=== PATIENT | male | born 1960 | race Caucasian/White ===

== ENCOUNTER 2016-10-24 15:40 | Day surgery (SDC) | payer OTHER ==
--- NOTE | 2016-10-24 15:50 | EDM.PDOC ---
ED HPI GI/ABDOMINAL - General Chief Complaint: Gastrointestinal Problem Stated Complaint: UNK Time Seen by Provider: 10/24/16 15:49 Source of Information: Reports: Patient History Limitations: Reports: No limitations - History of Present Illness INITIAL COMMENTS - FREE TEXT/NARRATIVE: HISTORY AND PHYSICAL: History of present illness: [Patient comes to the emergency room with a report of a foreign body in his rectum. Reports that a vibrator was placed in his rectum and he is not able to get it out. He reports that it is currently in the "on" position. He denies any pain and bleeding. Tried to douche to remove it. ] Review of systems: As per history of present illness and below otherwise all systems reviewed and negative. Past medical history: As per history of present illness and as reviewed below otherwise noncontributory. Surgical history: As per history of present illness and as reviewed below otherwise noncontributory. Social history: No reported history of drug or alcohol abuse. Family history: As per history of present illness and as reviewed below otherwise noncontributory. Physical exam: HEENT: Atraumatic, normocephalic. Lungs: Clear to auscultation, breath sounds equal bilaterally. Heart: S1S2, regular rate and rhythm. Abdomen: Soft, nondistended, nontender. Genitourinary: Deferred. Rectal: Normal sphincter tone. Rectal tissues are swollen. Foreign body is appreciated with only the tip of the examiner's finger. Extremities: Atraumatic, no cyanosis or edema appreciated. Neuro: Awake, alert, oriented. Motor and sensory unremarkable throughout. Exam nonfocal. Diagnostics: [KUB] Impression: [Retained foreign body in rectum] Plan: [Dr. Amber Nogueira is consulted, who will take patient to OR for foreign body removal. ] Definitive disposition and diagnosis as appropriate pending reevaluation and review of above. - Related Data Allergies/ADRs: Allergies Allergy/AdvReac Type Severity Reaction Status Date / Time Penicillins Allergy Swelling Verified 10/24/16 15:47 ragweed pollen Allergy Sneezing Verified 10/24/16 15:47 Home Meds: Home Meds Citalopram [Celexa] 1 tab PO ASDIRECTED PRN 08/19/16 [History] Lisinopril 1 tab PO DAILY 08/19/16 [History] Lisinopril/Hydrochlorothiazide [Lisinopril-Hctz 20-12.5 mg Tab] 1 tab PO DAILY 08/19/16 [History] Omeprazole 40 mg PO DAILY 08/19/16 [History] glyBURIDE [Glyburide] 10 mg PO BID 08/19/16 [History] metFORMIN HCl [Metformin HCl] 1 tab PO BID 08/19/16 [History] Past Medical History Other HEENT History: wears glasses Cardiovascular History: Reports: Hypertension Respiratory History: Reports: None Gastrointestinal History: Reports: Colon polyp, GERD Genitourinary History: Reports: None Musculoskeletal History: Reports: Fracture Other Musculoskeletal History: right tibia Neurological History: Reports: None Psychiatric History: Reports: PTSD Other Psychiatric History: denies need for pre-op sedation Endocrine/Metabolic History: Reports: Diabetes, type II, Obesity/BMI 30+ Hematologic History: Reports: None Immunologic History: Reports: None Oncologic (Cancer) History: Reports: None Dermatologic History: Reports: None - Past Surgical History Head Surgeries/Procedures: Reports: None HEENT Surgical History: Reports: None Cardiovascular Surgical History: Reports: None Respiratory Surgical History: Reports: None GI Surgical History: Reports: Colonoscopy, EGD Male Surgical History: Reports: None Endocrine Surgical History: Reports: None Neurological Surgical History: Reports: C-Spine, Laminectomy Musculoskeletal Surgical History: Reports: Other (see below) Other Musculoskeletal Surgeries/Procedures:: repair of partial amputation of finger, excision of left shoulder mass (lipoma) Oncologic Surgical History: Reports: None Dermatological Surgical History: Reports: None Social & Family History - Tobacco Use Smoking Status *Q: Former Smoker - Recreational Drug Use Recreational Drug Use: No Drug Use in Last 12 Months: No ED ROS GENERAL - Review of Systems Review Of Systems: ROS reveals no pertinent complaints other than HPI. ED EXAM, GI/ABD - Physical Exam Exam: See Below Course - Vital Signs Last Recorded V/S: Last Vital Signs Temp 99.0 F 10/24/16 15:47 Pulse 120 H 10/24/16 15:47 Resp 18 10/24/16 15:47 BP 141/86 H 10/24/16 15:47 Pulse Ox 95 10/24/16 15:47 Departure - Departure Time of Disposition: 16:30 Disposition: Home, Self-Care 01 Condition: good Clinical Impression: Rectal foreign body Qualifiers: Encounter type: initial encounter Qualified Code(s): T18.5XXA - Foreign body in anus and rectum, initial encounter
--- NOTE | 2016-10-24 16:22 | CR ---
EXAMINATION: Abdomen HISTORY: foreign body COMPARISON: None TECHNIQUE: Single view FINDINGS: There is a 14 cm mechanical device projecting over the rectum. Bilateral posterior fusion hardware noted within the lumbar spine. Visualized osseous structures appear normal. No abnormal ishmael cifications. IMPRESSION: There is a 14 cm mechanical device projecting over the rectosigmoid region.
[2016-10-24] MEDS ORDERED: Propofol 200 MG/20 ML SDV ONE (16:48)
[2016-10-24] MEDS ORDERED: Rocuronium 10 MG/ML 10 ML Syringe ONE (16:48)
[2016-10-24] MEDS ORDERED: Ondansetron 4 MG/2 ML SDV ONE (16:48)
[2016-10-24] MEDS ORDERED: Lidocaine 2% 5 ML SDV ONE (16:48)
[2016-10-24] MEDS ORDERED: Midazolam 1 MG/ML 2 ML SDV ONE (16:49)
[2016-10-24] MEDS ORDERED: fentaNYL 250 MCG/5 ML SDV ONE (16:49)
[2016-10-24] MEDS ORDERED: Succinylcholine/Normal Saline 200 MG/10 ML Syringe IV ONE (16:52)
[2016-10-24] MEDS ORDERED: Vasopressin 20 Units/1 ML MDV ONE (17:28)
--- NOTE | 2016-10-24 17:43 | PCM.OPNOTE ---
- General Post-Op/Procedure Note Date of Surgery/Procedure: 10/24/16 Operative Procedure(s): Removal of rectal foregin body Findings: Large pink dildo in rectum. First valve of espinoza in rectum bruised with small (1-2 mm) mucosal/NOT full thickness tear. Remainder of rectum and sigmoid appeared normal on sigmoidoscopy. Pre Op Diagnosis: rectal foreign body Post-Op Diagnosis: same Anesthesia Technique: General ET tube Primary Surgeon: Amber Nogueira Condition: Fair
[2016-10-24] MEDS ORDERED: fentaNYL 100 MCG/2 ML SDV IVPUSH PRN (17:51)
[2016-10-24 19:04] VITALS: BP 159/86
--- NOTE | 2016-10-24 20:37 | PCM48HPAN ---
Post Anesthesia Note - EVALUATION WITHIN 48HRS OF ANESTHETIC Vital Signs in Normal Range: Yes Patient Participated in Evaluation: Yes Respiratory Function Stable: Yes Airway Patent: Yes Cardiovascular Function Stable: Yes Hydration Status Stable: Yes Pain Control Satisfactory: Yes Nausea and Vomiting Control Satisfactory: Yes Mental Status Recovered: Yes
--- NOTE | 2016-10-24 20:37 | PCM.POSTAN ---
POST ANESTHESIA ASSESSMENT - MENTAL STATUS Mental Status: alert, oriented - RESPIRATORY Respiratory Status: respiratory rate WNL, airway patent, O2 saturation stable - CARDIOVASCULAR CV Status: pulse rate WNL, blood pressure stable - GASTROINTESTINAL GI Status: no symptoms - POST OP HYDRATION Hydration Status: adequate & stable
--- NOTE | 2016-10-25 00:06 | HP ---
DATE OF : 1960 PRIMARY CARE PHYSICIAN: None PCP CHIEF COMPLAINT: Foreign object in rectum. HISTORY OF PRESENT ILLNESS: The patient is a 55-year-old male, who presents to the emergency room with a foreign object in his rectum. The patient and his significant other were having sex this evening when she suggested placing a dildo up the patient's anus. The object was placed in the anus and it immediately went up into the patient's rectum. He attempted to remove it at home; however, it was too deep for him to remove it. The patient presented to the emergency room tonight right after the incident occurred. He denies any abdominal pain, fevers, chills or systemic signs of illness. His vital signs are stable. The patient tried douche at home in order to facilitate removal of the object with no relief. PAST MEDICAL HISTORY: Patient has a history of hypertension, hyperlipidemia, type 2 diabetes, and depression. PAST SURGICAL HISTORY: Anterior cervical neck fusion, lower lumbar fusion and lipoma removal on upper back. ALLERGIES: Penicillin and ragweed. SOCIAL HISTORY: Denies smoking, drinking, or any drug use. FAMILY HISTORY: Noncontributory. The patient states that there is no history of bleeding or clotting disorders. REVIEW OF SYSTEMS: A 10-point review of systems was negative other than stated above in the HPI. PHYSICAL EXAMINATION: VITAL SIGNS: Blood pressure 141/86, temp 99, pulse 120, respirations 18, SpO2 95% on room air. GENERAL: Well-nourished male, in no acute distress. HEENT: Head normocephalic and atraumatic. Pupils equal, round, reactive to light and accommodation. Ears and nose are normal externally. Mouth, mucous membranes moist. HEART: Regular rate and rhythm. LUNGS: Clear to auscultation bilaterally. ABDOMEN: Flat, soft, nontender. No evidence of guarding or rebound. RECTAL EXAM: Anoderm appears normal. No fissures. Digital rectal exam reveals a foreign object high up within the rectum, unable to be removed with my examination here in the emergency room. EXTREMITIES: Warm, well perfused. ASSESSMENT: Retained foreign object. PLAN: A KUB was performed in the emergency room which shows a low-lying rectal object consistent with a dildo. The patient is stable, in no acute pain. I explained to him that the quickest way to remove this would be by going to the operating room and performing an exam under anesthesia. If the object is unable to be removed with simple anesthesia, I would be performing a sigmoidoscopy and try performing the maneuvers with the scope to remove the object. Should the object unable to be removed or the object be found to perforate through the colon itself, the patient will need an exploratory laboratory laparotomy. We have gone over the risks of the procedure including bleeding, infection, or damage to surrounding structures. The patient verbalized understanding and wishes to proceed. The patient has not had anything to eat or drink since this morning and will be taken to the OR shortly. NELSON / SHILPI /[id number]
--- NOTE | 2016-10-25 01:03 | OR ---
SURGEON: STACY ORTIZ MD DATE OF PROCEDURE: 10/24/2016 PREOPERATIVE DIAGNOSIS: Rectal foreign body. POSTOPERATIVE DIAGNOSIS: Rectal foreign body. PROCEDURE PERFORMED: Exam under anesthesia and removal of rectal foreign body. ANESTHESIA: General endotracheal anesthesia. FINDINGS: Large pink dildo in rectum, removed intact. First valve of Bowles in the rectum, ecchymotic, with a small mucosal tear that was not full thickness. COMPLICATIONS: None. INDICATIONS: The patient is a 55-year-old male who this evening had a foreign body placed up his rectum. It was then removed with nonsurgical approach. I explained to the patient that we would take him to the operating room, put him under general anesthesia and perform an exam under anesthesia. If I was unable to remove it, I explained to the patient I may have to perform an exploratory laparotomy. We discussed the risks, including bleeding, infection, or damage to surrounding structures. The patient verbalized understanding and wished to proceed. PROCEDURE IN DETAIL: The patient was brought to the operating room and placed on the operating room table in lithotomy position. A time-out was completed verifying the patient's name, age, date of , allergies, and procedure to be performed. General endotracheal anesthesia was then induced. A digital rectal exam was performed which revealed that the foreign object was still too deep within the rectum in order to grasp the primarily. I attempted to place a bivalve in the patient's rectum, however, even with this in place, I was unable to see the end of the object. A colonoscope was then inserted in the rectum and the rectum insufflated with air. Using this, I was able to readily see the end of a silicone appearing dildo. I first attempted a loop snare to try and loop the object and pulled up primarily given the smooth texture of the object, however, I was unable to complete this. I tried guiding ring forceps along the colonoscope to grab the object, however, the object was to smooth in order to graft the object to the ring forceps. A single toothed tenotomy was then brought in and gently and carefully advanced over the top of the scope. It was then used to sharply grasp the end of the plastic device which gave me enough purchase to slowly and very deliberately remove the object in the same direction in which it was inserted. The object was then sent to pathology labeled as rectal foreign body. The colonoscope was then advanced into the rectum and advanced under direct visualization up along the sigmoid. The sigmoid colon itself appeared normal. The first valve of Bowles, however, in the rectum did appear ecchymotic and there was a very tiny 1-2 mm mucosal tear that did not appear full thickness. The rectum was desufflated and the procedure terminated. The patient was awoken and taken to the postoperative care unit in stable condition. All counts were complete and correct at the end of the case. NELSON / SHILPI /[id number]
--- NOTE | 2016-10-25 14:17 | CR ---
EXAM DATE: 10/24/16 PATIENT'S AGE: 55 Patient: NANCY EASTON Facility: [place], [place] Site . Site : 1960 Study: XRay Abdomen [id number]/[id number] 6:09:21 PM Ordering Physician: Mirlande Clark Final Report: HISTORY: Post removal rectal foreign object. Technique: Portable upright view of the abdomen, 2 images. Comparison: None. Findings: No free intraperitoneal gas. There is gas in nondilated colon. Degenerative changes in the spine. Fusion hardware in the lower lumbar spine. Impression: No free intraperitoneal gas. Dictated by Miki Lawrence MD @ Oct 24 2016 6:41PM (Electronic Signature) Report Signed by Proxy and Original Signed Document filed in the Medical Record. MTDMery
== END 2016-10-24 19:15 | disposition home or self-care (01) ==
LOC: MW.ED 15:40 → MW.SDS 16:16 → MW.MS 18:46 → MW.SDS 19:15
PROVIDERS: ATTEND Surgery
PROC: 0DCP8ZZ Extirpation of Matter from Rectum, Via Natural or Artificial Opening Endoscopic (ICD-10-PCS; principal; 2016-10-24)
DX: T18.5XXA Foreign body in anus and rectum, initial encounter (principal); I10 Essential (primary) hypertension; E78.5 Hyperlipidemia, unspecified; E11.9 Type 2 diabetes mellitus without complications; F32.9 Major depressive disorder, single episode, unspecified; Z98.1 Arthrodesis status; Z98.890 Other specified postprocedural states; Z88.0 Allergy status to penicillin; Z91.048 Other nonmedicinal substance allergy status
CPT/HCPCS: 45332; 74000; 99285; J2250; J2405; J3010; 00902; 88300; 99282; J2704

== ENCOUNTER 2018-12-01 03:26 | Emergency (ER) | payer OTHER ==
[2018-12-01] MEDS ORDERED: methylPREDNISolone Sodium Succinate 125 MG/2 ML SDV IVPUSH ONE (03:40)
[2018-12-01] MEDS ORDERED: Famotidine 20 MG/2 ML SDV IVPUSH ONE (03:40)
[2018-12-01] MEDS ORDERED: diphenhydrAMINE 50 MG/ML SDV IVPUSH ONE (03:40)
[2018-12-01] MEDS ORDERED: Sodium Chloride 0.9% 1,000 ML IV ONE (03:44)
[2018-12-01] MEDS ORDERED: EPINEPHrine 1 MG/ML SDV IM ONE (03:44)
[2018-12-01] MEDS ORDERED: Sodium Chloride 0.9% 10 ML Syringe FLUSH PRN (03:44)
[2018-12-01] MEDS ORDERED: Sodium Chloride 0.9% 2.5 ML Syringe FLUSH PRN (03:44)
--- NOTE | 2018-12-01 03:48 | EDM.PDOC ---
ED HPI GENERAL MEDICAL PROBLEM - General Chief Complaint: ENT Problem Stated Complaint: PT IS POSSIBLY HAVING AN ALLERGIC REACTION Time Seen by Provider: 12/01/18 03:38 - History of Present Illness INITIAL COMMENTS - FREE TEXT/NARRATIVE: HISTORY AND PHYSICAL: History of present illness: The patient is a 57-year-old male who comes in with sudden onset of lip and tongue swelling itchiness to his hands and itchy rash in his groin area that started approximately 30 minutes ago. The patient says that he did not eat any new foods our have any allergies to foods or products but he has been on lisinopril for the last 10 years and about 30 minutes ago he noticed that half of his lip was starting to swell in his entire lip swelled and his tongue and he became itchy in his hands and his groin area. He has no shortness of breath concerned about the swelling so came right here. He's never had a reaction to his medications in the past nor has he ever had an allergic reaction like this in the past. Review of systems: As per history of present illness and below otherwise all systems reviewed and negative. Past medical history: As per history of present illness and as reviewed below otherwise noncontributory. Surgical history: As per history of present illness and as reviewed below otherwise noncontributory. Social history: No reported history of drug or alcohol abuse. Family history: As per history of present illness and as reviewed below otherwise noncontributory. Physical exam: General: Well-developed well-nourished overweight man who is nontoxic and vital signs are noted by me. He is not breathless with my conversation but he does speak with a thickened tongue. Skin: There is an urticarial rash seen in his lower pelvis/groin area but the remainder of his body is without any rashes or erythema. HEENT: Atraumatic, normocephalic, pupils reactive, negative for conjunctival pallor or scleral icterus, mucous membranes moist, throat clear, neck supple, nontender, trachea midline. There is diffuse swelling of his lips lower greater than upper as well as his tongue but I am able to see his posterior oropharynx and uvula. There is no cervical adenopathy or nuchal rigidity and his entire face is not grossly swollen. Lungs: Clear to auscultation, breath sounds equal bilaterally, chest nontender. There is no wheezing or stridor Heart: S1S2, regular rate and rhythm no overt murmurs Abdomen: Soft, nondistended, nontender. Negative for masses or hepatosplenomegaly. Negative for costovertebral tenderness. Pelvis: Stable nontender. Genitourinary: Deferred. Rectal: Deferred. Extremities: Atraumatic, negative for cords or calf pain. Neurovascular unremarkable. No pedal edema or leg asymmetry and no hand or leg swelling is appreciated Neuro: Awake, alert, oriented. Cranial nerves II through XII unremarkable. Cerebellum unremarkable. Motor and sensory unremarkable throughout. Exam nonfocal. Diagnostics: none Therapeutics: IV O2 monitor IV fluids Benadryl pepcid Solu-Medrol Epi IM 0420: The patient's swelling of his lips and tongue have not progressed. He still says he is feeling itchy but we are continuing to monitor. 0446: Patient is now sleeping comfortably without any respiratory distress. Again there has been no significant worsening of the swelling of the lips and in fact they look slightly better. He is no longer itchy and the medications have kicked in. is aware that we will continue to monitor him 0545: Patient lips continue to improve as does his tongue and his speech is much improved. He would like to try to go home at this point and I will place him on steroids as well as Benadryl [id number]. He is aware that I would like to continue to observe him just to be safe but he says he would prefer to go home. He is aware of reasons to return and to stop taking the lisinopril is not having any respiratory compromise Impression: Angioedema, history of lisinopril use, improving Definitive disposition and diagnosis as appropriate pending reevaluation and review of above. - Related Data Allergies Allergy/AdvReac Type Severity Reaction Status Date / Time Penicillins Allergy Swelling Verified 12/01/18 03:42 ragweed pollen Allergy Sneezing Verified 12/01/18 03:42 Home Meds: Home Meds Citalopram [Celexa] 1 tab PO ASDIRECTED PRN 08/19/16 [History] Lisinopril 1 tab PO DAILY 08/19/16 [History] Lisinopril/Hydrochlorothiazide [Lisinopril-Hctz 20-12.5 mg Tab] 1 tab PO DAILY 08/19/16 [History] Omeprazole 40 mg PO DAILY 08/19/16 [History] glyBURIDE [Glyburide] 10 mg PO BID 08/19/16 [History] metFORMIN HCl [Metformin HCl] 1 tab PO BID 08/19/16 [History] Calcium Polycarbophil [Fiber Tabs] 625 mg PO BID #30 tablet 10/24/16 [Rx] Polyethylene Glycol 3350 [MiraLAX] 17 gm PO BEDTIME #30 packet 10/24/16 [Rx] Past Medical History Other HEENT History: wears glasses Cardiovascular History: Reports: Hypertension Respiratory History: Reports: None Gastrointestinal History: Reports: Colon Polyp, GERD Genitourinary History: Reports: None Musculoskeletal History: Reports: Fracture Other Musculoskeletal History: right tibia Neurological History: Reports: None Psychiatric History: Reports: PTSD Other Psychiatric History: denies need for pre-op sedation Endocrine/Metabolic History: Reports: Diabetes, Type II, Obesity/BMI 30+ Hematologic History: Reports: None Immunologic History: Reports: None Oncologic (Cancer) History: Reports: None Dermatologic History: Reports: None - Past Surgical History Musculoskeletal Surgical History: Reports: Other (See Below) Social & Family History - Family History Family Medical History: Noncontributory - Caffeine Use Caffeine Use: Reports: Coffee ED ROS GENERAL - Review of Systems Review Of Systems: ROS reveals no pertinent complaints other than HPI. ED EXAM, GENERAL - Physical Exam Exam: See Below (See dictation) Course - Vital Signs Last Recorded V/S: Last Vital Signs Temp 35.8 C 12/01/18 03:28 Pulse 93 12/01/18 03:28 Resp 20 12/01/18 03:28 BP 147/83 H 12/01/18 03:28 Pulse Ox 96 12/01/18 03:28 - Orders/Labs/Meds Orders: Active Orders 24 hr Category Date Time Status Sodium Chloride 0.9% [Saline Flush] Med 12/01/18 03:44 Active 10 ml FLUSH ASDIRECTED PRN Sodium Chloride 0.9% [Saline Flush] Med 12/01/18 03:44 Active 2.5 ml FLUSH ASDIRECTED PRN Saline Lock Insert [OM.PC] Stat Oth 12/01/18 03:44 Ordered Medication Orders Sodium Chloride (Saline Flush) 10 ml FLUSH ASDIRECTED PRN PRN Reason: Keep Vein Open Sodium Chloride (Saline Flush) 2.5 ml FLUSH ASDIRECTED PRN PRN Reason: Keep Vein Open Meds: Medications Generic Name Dose Route Start Last Admin Trade Name Freq PRN Reason Stop Dose Admin Sodium Chloride 10 ml 12/01/18 03:44 Saline Flush FLUSH ASDIRECTED PRN Keep Vein Open Sodium Chloride 2.5 ml 12/01/18 03:44 Saline Flush FLUSH ASDIRECTED PRN Keep Vein Open Discontinued Medications Generic Name Dose Route Start Last Admin Trade Name Freq PRN Reason Stop Dose Admin Diphenhydramine HCl 50 mg 12/01/18 03:40 12/01/18 03:45 Benadryl IVPUSH 12/01/18 03:41 50 mg ONETIME ONE Administration Epinephrine HCl 0.3 mg 12/01/18 03:44 12/01/18 03:55 Adrenalin IM 12/01/18 03:45 0.3 mg ONETIME ONE Administration Famotidine 20 mg 12/01/18 03:40 12/01/18 03:47 Pepcid IVPUSH 12/01/18 03:41 20 mg ONETIME ONE Administration Sodium Chloride 1,000 mls @ 999 mls/hr 12/01/18 03:44 12/01/18 03:50 Normal Saline IV 12/01/18 04:44 999 mls/hr STAT ONE Administration Methylprednisolone Sodium Succinate 125 mg 12/01/18 03:40 12/01/18 03:46 Solu-Medrol IVPUSH 12/01/18 03:41 125 mg ONETIME ONE Administration Departure - Departure Time of Disposition: 05:50 Disposition: Home, Self-Care 01 Condition: Good Clinical Impression: Angioedema due to angiotensin converting enzyme inhibitor (REAGAN-I) - Discharge Information Referrals: PCP,None [Primary Care Provider] - Forms: ED Department Discharge Additional Instructions: The following information is given to patients seen in the emergency department who are being discharged to home. This information is to outline your options for follow-up care. We provide all patients seen in our emergency department with a follow-up referral. The need for follow-up, as well as the timing and circumstances, are variable depending upon the specifics of your emergency department visit. If you don't have a primary care physician on staff, we will provide you with a referral. We always advise you to contact your personal physician following an emergency department visit to inform them of the circumstance of the visit and for follow-up with them and/or the need for any referrals to a consulting specialist. The emergency department will also refer you to a specialist when appropriate. This referral assures that you have the opportunity for followup care with a specialist. All of these measure are taken in an effort to provide you with optimal care, which includes your followup. Under all circumstances we always encourage you to contact your private physician who remains a resource for coordinating your care. When calling for followup care, please make the office aware that this follow-up is from your recent emergency room visit. If for any reason you are refused follow-up, please contact the [facility] emergency department at and ask to speak to the emergency department charge nurse. [facility] Primary care- Internal Medicine and Family [address] [address] Please do not take the lisinopril anymore and please contact her provider on Monday to discuss a change in her medications for your blood pressure. Please take Benadryl 50 mg [id number] every 6 hours for the next 2 days and then every 6 hours as needed. Please start the prednisone you have been given by prescription this evening. Eat only a soft diet and sleep on at least 3 -4 pillows or in a recliner for the next 24 hours. Return to ER as needed and as we discussed - My Orders Last 24 Hours: My Active Orders 12/01/18 03:44 Sodium Chloride 0.9% [Saline Flush] 10 ml FLUSH ASDIRECTED PRN Sodium Chloride 0.9% [Saline Flush] 2.5 ml FLUSH ASDIRECTED PRN Saline Lock Insert [OM.PC] Stat - Assessment/Plan Last 24 Hours: My Active Orders 12/01/18 03:44 Sodium Chloride 0.9% [Saline Flush] 10 ml FLUSH ASDIRECTED PRN Sodium Chloride 0.9% [Saline Flush] 2.5 ml FLUSH ASDIRECTED PRN Saline Lock Insert [OM.PC] Stat
[2018-12-01 06:00] VITALS: BP 127/74
== END 2018-12-01 06:25 | disposition home or self-care (01) ==
LOC: MW.ED 03:26
DX: T78.3XXA Angioneurotic edema, initial encounter (principal); I10 Essential (primary) hypertension; E11.9 Type 2 diabetes mellitus without complications; Z88.0 Allergy status to penicillin; Z79.899 Other long term (current) drug therapy
CPT/HCPCS: 96361; 96372; 96374; 96375; 99283; J0171; J1200; J2930; J3490; J7040; 99284

== ENCOUNTER 2020-01-11 15:48 | Emergency (ER) | payer OTHER ==
[2020-01-11] MEDS ORDERED: Sodium Chloride 0.9% 10 ML Syringe FLUSH PRN (15:58)
[2020-01-11] MEDS ORDERED: Sodium Chloride 0.9% 2.5 ML Syringe FLUSH PRN (15:58)
--- NOTE | 2020-01-11 16:12 | EDM.PDOC ---
ED HPI GENERAL MEDICAL PROBLEM - General Chief Complaint: Respiratory Problem Stated Complaint: SOB Time Seen by Provider: 01/11/20 16:08 Source of Information: Reports: Patient History Limitations: Reports: No Limitations - History of Present Illness INITIAL COMMENTS - FREE TEXT/NARRATIVE: HISTORY AND PHYSICAL: History of present illness: Patient is a 59-year-old male presents to the ED with complaint of shortness of breath. Patient states that when he is doing yard work and bending over he feels like he has to stop to catch his breath over the past 3-4 days. He denies any chest pain, cough, fevers, chills, nausea, vomiting, diarrhea. He states he has had some swelling in his legs for the past 1 week. Past medical history significant for hypertension and diabetes. Reports occasional alcohol use and history of smoking. Review of systems: As per history of present illness and below otherwise all systems reviewed and negative. Past medical history: As per history of present illness and as reviewed below otherwise noncontributory. Surgical history: As per history of present illness and as reviewed below otherwise noncontributory. Social history: No reported history of drug or alcohol abuse. Family history: As per history of present illness and as reviewed below otherwise noncontributory. Physical exam: General: Patient sitting comfortably in no acute distress and nontoxic appearing HEENT: Atraumatic, normocephalic, pupils reactive, negative for conjunctival pallor or scleral icterus, mucous membranes moist, throat clear, neck supple, nontender, trachea midline. No meningeal signs. Lungs: Clear to auscultation, breath sounds equal bilaterally, chest nontender. Heart: S1S2, regular, negative for clicks, rubs, or overt murmur. Abdomen: Soft, distended abdomen. Negative for masses or hepatosplenomegaly. Negative for costovertebral tenderness. No rigidity, rebound, guarding. Pelvis: Stable nontender. Genitourinary: Deferred. Rectal: Deferred. Extremities: 1+ pitting edema to the mid shins. Atraumatic, negative for cords or calf pain. Neurovascular unremarkable. Neuro: Awake, alert, oriented. Cranial nerves II through XII unremarkable. Cerebellum unremarkable. Motor and sensory unremarkable throughout. Exam nonfocal. Notes: Patient had a tick crawling on his that was not attached and there was no engorgement of the tick. Patient reports improvement with duoneb. Patient does have some mild pitting edema, no CHF changes on CXR and BNP minimally elevated. Lasix was initially sent to pharmacy for lower extremity edema but cancelled as patient has a minimally low potassium (3.2). Advised follow up with primary care provider and return to ED if new or worsening symptoms. Diagnostics: CBC, CMP, BNP, Troponin, EKG, COVID [employer]: DuoNeb Prescriptions: Ventolin inhaler Impression: Shortness of breath Plan: Use inhaler as instructed Follow up with primary care provider Return to ED as needed as discussed Definitive disposition and diagnosis as appropriate pending reevaluation and review of above. - Related Data Allergies Allergy/AdvReac Type Severity Reaction Status Date / Time Penicillins Allergy Swelling Verified 12/01/18 03:42 ragweed pollen Allergy Sneezing Verified 12/01/18 03:42 blood pressure medicine Allergy Swelling Uncoded 01/11/20 15:55 Home Meds: Home Meds Citalopram [Celexa] 1 tab PO ASDIRECTED PRN 08/19/16 [History] Lisinopril 1 tab PO DAILY 08/19/16 [History] Lisinopril/Hydrochlorothiazide [Lisinopril-Hctz 20-12.5 mg Tab] 1 tab PO DAILY 08/19/16 [History] Omeprazole 40 mg PO DAILY 08/19/16 [History] glyBURIDE [Glyburide] 10 mg PO BID 08/19/16 [History] metFORMIN HCl [Metformin HCl] 1 tab PO BID 08/19/16 [History] Polyethylene Glycol 3350 [MiraLAX] 17 gm PO BEDTIME #30 packet 10/24/16 [Rx] calcium polycarbophiL [Fiber Tabs] 625 mg PO BID #30 tablet 10/24/16 [Rx] Albuterol [Ventolin HFA] 1 puff INH Q4H #1 inhaler 01/11/20 [Rx] Past Medical History Other HEENT History: wears glasses Cardiovascular History: Reports: Hypertension Respiratory History: Reports: None Gastrointestinal History: Reports: Colon Polyp, GERD Genitourinary History: Reports: None Musculoskeletal History: Reports: Fracture Other Musculoskeletal History: right tibia, no sx Neurological History: Reports: None Psychiatric History: Reports: PTSD Other Psychiatric History: denies need for pre-op sedation Endocrine/Metabolic History: Reports: Diabetes, Type II, Obesity/BMI 30+ Hematologic History: Reports: None Immunologic History: Reports: None Oncologic (Cancer) History: Reports: None Dermatologic History: Reports: None - Past Surgical History Head Surgeries/Procedures: Reports: None HEENT Surgical History: Reports: None Cardiovascular Surgical History: Reports: None GI Surgical History: Reports: None Endocrine Surgical History: Reports: None Musculoskeletal Surgical History: Reports: None Social & Family History - Family History Family Medical History: Noncontributory - Tobacco Use Smoking Status *Q: Former Smoker Used Tobacco, but Quit: Yes Month/Year Tobacco Last Used: quit since 1994 - Caffeine Use Caffeine Use: Reports: Coffee, Soda - Recreational Drug Use Recreational Drug Use: No ED ROS GENERAL - Review of Systems Review Of Systems: Comprehensive ROS is negative, except as noted in HPI. ED EXAM, GENERAL - Physical Exam Exam: See Below (see dictation) Course - Vital Signs Last Recorded V/S: Last Vital Signs Temp 96.5 F L 01/11/20 15:52 Pulse 95 01/11/20 17:45 Resp 19 01/11/20 17:45 BP 150/78 H 01/11/20 17:45 Pulse Ox 95 01/11/20 17:45 - Orders/Labs/Meds Orders: Active Orders 24 hr Category Date Time Status EKG Documentation Completion [RC] STAT Care 01/11/20 15:58 Active RT Aerosol Therapy [RC] ASDIRECTED Care 01/11/20 18:09 Active Sodium Chloride 0.9% [Saline Flush] Med 01/11/20 15:58 Active 10 ml FLUSH ASDIRECTED PRN Sodium Chloride 0.9% [Saline Flush] Med 01/11/20 15:58 Active 2.5 ml FLUSH ASDIRECTED PRN Saline Lock Insert [OM.PC] Stat Oth 01/11/20 15:58 Ordered Medication Orders Sodium Chloride (Saline Flush) 10 ml FLUSH ASDIRECTED PRN PRN Reason: Keep Vein Open Sodium Chloride (Saline Flush) 2.5 ml FLUSH ASDIRECTED PRN PRN Reason: Keep Vein Open Labs: Laboratory Tests 01/11/20 01/11/20 01/11/20 Range/Units 17:08 17:08 17:08 WBC 8.30 (4.0-11.0) K/uL RBC 4.30 L (4.50-5.90) M/uL Hgb 12.2 L (13.0-17.0) g/dL Hct 36.7 L (38.0-50.0) % MCV 85.3 (80.0-98.0) fL MCH 28.4 (27.0-32.0) pg MCHC 33.2 (31.0-37.0) g/dL RDW Std Deviation 39.5 (28.0-62.0) fl RDW Coeff of Arielle 13 (11.0-15.0) % Plt Count 262 (150-400) K/uL MPV 9.80 (7.40-12.00) fL Neut % (Auto) 71.6 (48.0-80.0) % Lymph % (Auto) 19.5 (16.0-40.0) % Deuel % (Auto) 6.7 (0.0-15.0) % Eos % (Auto) 1.6 (0.0-7.0) % Baso % (Auto) 0.6 (0.0-1.5) % Neut # (Auto) 5.9 H (1.4-5.7) K/uL Lymph # (Auto) 1.6 (0.6-2.4) K/uL Deuel # (Auto) 0.6 (0.0-0.8) K/uL Eos # (Auto) 0.1 (0.0-0.7) K/uL Baso # (Auto) 0.1 (0.0-0.1) K/uL Nucleated RBC % 0.3 /100WBC Nucleated RBCs # 0 K/uL Sodium 139 (136-148) mmol/L Potassium 3.2 L (3.5-5.1) mmol/L Chloride 103 (98-107) mmol/L Carbon Dioxide 28.6 (21.0-32.0) mmol/L BUN 15 (7.0-18.0) mg/dL Creatinine 1.0 (0.8-1.3) mg/dL Est Cr Clr Drug Dosing 76.00 mL/min Estimated GFR (MDRD) > 60.0 ml/min Glucose 238 H (74-106) mg/dL Calcium 8.1 L (8.5-10.1) mg/dL Total Bilirubin 0.4 (0.2-1.0) mg/dL AST 25 (15-37) IU/L ALT 58 (14-63) IU/L Alkaline Phosphatase 155 H (46-116) U/L Troponin I < 0.050 (0.000-0.056) ng/mL B-Natriuretic Peptide 129 H (<100) PG/ML Total Protein 7.0 (6.4-8.2) g/dL Albumin 3.6 (3.4-5.0) g/dL Globulin 3.4 (2.6-4.0) g/dL Albumin/Globulin Ratio 1.1 (0.9-1.6) SARS-CoV-2 RNA (RT-PCR) (NEGATIVE) 01/11/20 Range/Units 17:24 WBC (4.0-11.0) K/uL RBC (4.50-5.90) M/uL Hgb (13.0-17.0) g/dL Hct (38.0-50.0) % MCV (80.0-98.0) fL MCH (27.0-32.0) pg MCHC (31.0-37.0) g/dL RDW Std Deviation (28.0-62.0) fl RDW Coeff of Arielle (11.0-15.0) % Plt Count (150-400) K/uL MPV (7.40-12.00) fL Neut % (Auto) (48.0-80.0) % Lymph % (Auto) (16.0-40.0) % Deuel % (Auto) (0.0-15.0) % Eos % (Auto) (0.0-7.0) % Baso % (Auto) (0.0-1.5) % Neut # (Auto) (1.4-5.7) K/uL Lymph # (Auto) (0.6-2.4) K/uL Deuel # (Auto) (0.0-0.8) K/uL Eos # (Auto) (0.0-0.7) K/uL Baso # (Auto) (0.0-0.1) K/uL Nucleated RBC % /100WBC Nucleated RBCs # K/uL Sodium (136-148) mmol/L Potassium (3.5-5.1) mmol/L Chloride (98-107) mmol/L Carbon Dioxide (21.0-32.0) mmol/L BUN (7.0-18.0) mg/dL Creatinine (0.8-1.3) mg/dL Est Cr Clr Drug Dosing mL/min Estimated GFR (MDRD) ml/min Glucose (74-106) mg/dL Calcium (8.5-10.1) mg/dL Total Bilirubin (0.2-1.0) mg/dL AST (15-37) IU/L ALT (14-63) IU/L Alkaline Phosphatase (46-116) U/L Troponin I (0.000-0.056) ng/mL B-Natriuretic Peptide (<100) PG/ML Total Protein (6.4-8.2) g/dL Albumin (3.4-5.0) g/dL Globulin (2.6-4.0) g/dL Albumin/Globulin Ratio (0.9-1.6) SARS-CoV-2 RNA (RT-PCR) NEGATIVE (NEGATIVE) Meds: Medications Generic Name Dose Route Start Last Admin Trade Name Freq PRN Reason Stop Dose Admin Sodium Chloride 10 ml 01/11/20 15:58 Saline Flush FLUSH ASDIRECTED PRN Keep Vein Open Sodium Chloride 2.5 ml 01/11/20 15:58 Saline Flush FLUSH ASDIRECTED PRN Keep Vein Open Discontinued Medications Generic Name Dose Route Start Last Admin Trade Name Freq PRN Reason Stop Dose Admin Albuterol/Ipratropium 3 ml 01/11/20 18:09 01/11/20 18:21 Duoneb 3.0-0.5 Mg/3 Ml NEB 01/11/20 18:10 3 ml ONETIME ONE Administration Departure - Departure Time of Disposition: 18:35 Disposition: Home, Self-Care 01 Condition: Good Clinical Impression: Shortness of breath - Discharge Information Prescriptions: Albuterol [Ventolin HFA] 1 puff INH Q4H #1 inhaler Instructions: Shortness of Breath, Adult, [id number] Referrals: [facility] [Primary Care Provider] - Forms: ED Department Discharge Additional Instructions: The following information is given to patients seen in the emergency department who are being discharged to home. This information is to outline your options for follow-up care. We provide all patients seen in our emergency department with a follow-up referral. The need for follow-up, as well as the timing and circumstances, are variable depending upon the specifics of your emergency department visit. If you don't have a primary care physician on staff, we will provide you with a referral. We always advise you to contact your personal physician following an emergency department visit to inform them of the circumstance of the visit and for follow-up with them and/or the need for any referrals to a consulting specialist. The emergency department will also refer you to a specialist when appropriate. This referral assures that you have the opportunity for follow-up care with a specialist. All of these measure are taken in an effort to provide you with optimal care, which includes your follow-up. Under all circumstances we always encourage you to contact your private physician who remains a resource for coordinating your care. When calling for follow-up care, please make the office aware that this follow-up is from your recent emergency room visit. If for any reason you are refused follow-up, please contact the [facility] Emergency Department at and asked to speak to the emergency department charge nurse. [facility] [address] [place] [address] [place] [address] Use inhaler as instructed Follow up with primary care provider Return to ED as needed as discussed Sepsis Event Note - Evaluation Sepsis Screening Result: No Definite Risk - Focused Exam Vital Signs: Vital Signs Temp Pulse Resp BP Pulse Ox 01/11/20 17:45 95 19 150/78 H 95 01/11/20 17:15 85 19 159/84 H 95 01/11/20 15:52 96.5 F L 95 20 189/95 H 96 Date Exam was Performed: 01/11/20 Time Exam was Performed: 18:44 - My Orders Last 24 Hours: My Active Orders 01/11/20 15:58 EKG Documentation Completion [RC] STAT Sodium Chloride 0.9% [Saline Flush] 10 ml FLUSH ASDIRECTED PRN Sodium Chloride 0.9% [Saline Flush] 2.5 ml FLUSH ASDIRECTED PRN Saline Lock Insert [OM.PC] Stat 01/11/20 18:09 RT Aerosol Therapy [RC] ASDIRECTED - Assessment/Plan Last 24 Hours: My Active Orders 01/11/20 15:58 EKG Documentation Completion [RC] STAT Sodium Chloride 0.9% [Saline Flush] 10 ml FLUSH ASDIRECTED PRN Sodium Chloride 0.9% [Saline Flush] 2.5 ml FLUSH ASDIRECTED PRN Saline Lock Insert [OM.PC] Stat 01/11/20 18:09 RT Aerosol Therapy [RC] ASDIRECTED
--- NOTE | 2020-01-11 16:47 | CR ---
Chest: 2 views of the chest were obtained. Comparison: Prior chest x-ray of 04/08/19. Heart size and mediastinum are normal. Lungs are clear with no acute parenchymal change. Prior cervical spine surgery is seen. Scattered degenerative change is seen throughout the spine. Lungs are hyperinflated compatible with emphysematous change. Impression: 1. Probable emphysematous change. 2. Other findings as noted above. 3. Nothing acute is appreciated. Diagnostic code #2 This report was dictated in MDT
[2020-01-11 17:38] LABS: BLOOD UREA NITROGEN,BUN 15 mg/dL (7.0-18.0); CARBON DIOXIDE,CO2 28.6 mmol/L (21.0-32.0); CHLORIDE,CL 103 mmol/L (98-107); GLUCOSE RANDOM 238 mg/dL (74-106); POTASSIUM,K 3.2 mmol/L (3.5-5.1); SODIUM,NA 139 mmol/L (136-148)
[2020-01-11] MEDS ORDERED: Albuterol/Ipratropium 3.0-0.5 MG/3 ML Neb Soln NEB ONE (18:09)
[2020-01-11 18:48] VITALS: BP 153/79; PULSE 90
== END 2020-01-11 18:45 | disposition home or self-care (01) ==
LOC: MW.ED 15:48
DX: R06.02 Shortness of breath (principal); I10 Essential (primary) hypertension; K21.9 Gastro-esophageal reflux disease without esophagitis; E11.9 Type 2 diabetes mellitus without complications; E66.9 Obesity, unspecified; Z87.891 Personal history of nicotine dependence; Z68.41 Body mass index [BMI] 40.0-44.9, adult; Z88.0 Allergy status to penicillin; Z91.018 Allergy to other foods; Z79.899 Other long term (current) drug therapy; Z79.84 Long term (current) use of oral hypoglycemic drugs
CPT/HCPCS: 36415; 71046; 71046-26; 80053; 83880; 84484; 85025; 93005; 99282; 99285-25; J7620-GY; U0002

== ENCOUNTER 2020-01-26 18:09 | Emergency (ER) | payer OTHER ==
--- NOTE | 2020-01-26 18:16 | EDM.PDOC ---
ED HPI GENERAL MEDICAL PROBLEM - General Chief Complaint: Eye Problems Stated Complaint: OBJECT LODGED INTO LEFT EYE Time Seen by Provider: 01/26/20 18:11 Source of Information: Reports: Patient History Limitations: Reports: No Limitations - History of Present Illness INITIAL COMMENTS - FREE TEXT/NARRATIVE: 59-year-old male with past medical history of diabetes, hypertension presenting with concern for an ocular foreign body. About 30 minutes prior to arrival, the patient was grinding the metal portion of a vehicle trailer when a piece of metal flipped over his glasses and got into his left eye. He presents the emergency department complaining of pain and a foreign body sensation to the medial sclera of the left eye. He denies any pain with extraocular muscle movement, does not wear contacts, no history of ophthalmologic surgeries. Tetanus immunization is not up-to-date. No self treatment prior to arrival. - Related Data Allergies Allergy/AdvReac Type Severity Reaction Status Date / Time Penicillins Allergy Swelling Verified 01/26/20 18:38 ragweed pollen Allergy Sneezing Verified 01/26/20 18:38 blood pressure medicine Allergy Swelling Uncoded 01/26/20 18:38 Home Meds: Home Meds Citalopram [Celexa] 1 tab PO ASDIRECTED PRN 08/19/16 [History] Lisinopril 1 tab PO DAILY 08/19/16 [History] Lisinopril/Hydrochlorothiazide [Lisinopril-Hctz 20-12.5 mg Tab] 1 tab PO DAILY 08/19/16 [History] Omeprazole 40 mg PO DAILY 08/19/16 [History] glyBURIDE [Glyburide] 10 mg PO BID 08/19/16 [History] metFORMIN HCl [Metformin HCl] 1 tab PO BID 08/19/16 [History] Polyethylene Glycol 3350 [MiraLAX] 17 gm PO BEDTIME #30 packet 10/24/16 [Rx] calcium polycarbophiL [Fiber Tabs] 625 mg PO BID #30 tablet 10/24/16 [Rx] Albuterol [Ventolin HFA] 1 puff INH Q4H #1 inhaler 01/11/20 [Rx] Acetaminophen [Acetaminophen Extra Strength] 500 - 1,000 mg PO Q6H PRN #30 tablet 01/26/20 [Rx] Ketorolac [Acular 0.5% Ophth Soln] 1 drop OP TID PRN #1 bottle 01/26/20 [Rx] Sulfacetamide Sodium 5 ml OP TID 7 Days #1 bottle 01/26/20 [Rx] Past Medical History Other HEENT History: wears glasses Cardiovascular History: Reports: Hypertension Respiratory History: Reports: None Gastrointestinal History: Reports: Colon Polyp, GERD Genitourinary History: Reports: None Musculoskeletal History: Reports: Fracture Other Musculoskeletal History: right tibia, no sx Neurological History: Reports: None Psychiatric History: Reports: PTSD Other Psychiatric History: denies need for pre-op sedation Endocrine/Metabolic History: Reports: Diabetes, Type II, Obesity/BMI 30+ Hematologic History: Reports: None Immunologic History: Reports: None Oncologic (Cancer) History: Reports: None Dermatologic History: Reports: None - Past Surgical History Head Surgeries/Procedures: Reports: None HEENT Surgical History: Reports: None Cardiovascular Surgical History: Reports: None GI Surgical History: Reports: None Endocrine Surgical History: Reports: None Musculoskeletal Surgical History: Reports: None Social & Family History - Family History Family Medical History: Noncontributory - Caffeine Use Caffeine Use: Reports: Coffee, Soda ED ROS GENERAL - Review of Systems Review Of Systems: See Below Constitutional: Denies: Fever HEENT: Reports: Eye Pain, Glasses. Denies: Contact Lenses, Vision Change Respiratory: Denies: Shortness of Breath Cardiovascular: Denies: Chest Pain Endocrine: Reports: No Symptoms GI/Abdominal: Denies: Abdominal Pain : Denies: Flank Pain Musculoskeletal: Denies: Back Pain Skin: Reports: No Symptoms Neurological: Denies: Headache Psychiatric: Reports: No Symptoms Hematologic/Lymphatic: Reports: No Symptoms Immunologic: Reports: No Symptoms ED EXAM GENERAL W FULL EYE - Physical Exam Exam: See Below Text/Narrative:: Vital signs reviewed. Nursing notes reviewed. Constitutional: Awake, alert, non-distressed. Head: Normocephalic, atraumatic. Ears, Nose, Throat: External ears and nose normal, moist oral mucosa. Cardiovascular: 2+ radial pulse, capillary refill less than 2 seconds. Pulmonary: normal work of breathing, no accessory muscle use. Musculoskeletal: No deformities. Integumentary: Appropriate color for ethnicity, warm, dry, no pallor or jaundice , no rash. Neurologic: Alert, answering questions appropriately, normal speech, no facial droop, moving all extremities well. Psychiatric: Appropriate mood and affect, normal thought process. Eye Exam: Left Eye: Normal Fundi, Normal Inspection, Bilateral Eye: EOMI, PERRL Visual Acuity (R) 20/: 40 Visual Acuity (L) 20/: 40 With Correction: No IOP (R) in mmH IOP (L) in mmH IOP Measure with (Equipment): Tonopen Eyelids: Left: Lid Everted for Exam, Bilateral: Normal Appearance Conjunctiva & Sclera: Bilateral: Normal Appearance Cornea Exam: Left: Normal Appearance, Examined with Flourescein Extraocular Movements: Bilateral: Intact Pupils: Normal Accommodation Pupillary Size: Bilateral: 4 mm Pupillary Reaction: Bilateral: Brisk Anterior Chamber: Left: Normal Appearance Posterior Chamber: Left: Normal Funduscopic Comments: Fluorescein staining of left eye was negative. No Maximino sign noted. Pterygium noted to medial sclera of left eye. Course - Vital Signs Text/Narrative:: 59-year-old male presenting with concern for foreign body in the left eye. Patient hemodynamically stable, afebrile, well-appearing, looks nontoxic. Differential diagnosis includes but is not limited to: Corneal abrasion, foreign body, rust ring, corneal ulcer, globe rupture, lens dislocation, keratitis, uveitis, etc. Normal visual acuity. Normal intraocular pressures. Slit-lamp examination and fluorescein staining of the left eye are unremarkable. CT scan of the orbits reveals no foreign body or ocular injury pattern. Patient does not wear contacts and does not need pseudomonal coverage. Tetanus booster given. We treat empirically for corneal abrasion. Treatment with topical sulfacetamide, ketorolac ophthalmic drops, [id number] extra strength acetaminophen. Follow-up with ophthalmology. Plan: Patient is stable to discharge home with outpatient ophthalmology follow- up. Strict emergency department return precautions were provided, patient indicated understanding. All questions were answered prior to departure. Discharged in good condition. Last Recorded V/S: Last Vital Signs Temp 36.2 C 01/26/20 18:30 Pulse 66 01/26/20 18:30 Resp 20 01/26/20 18:30 BP 140/90 01/26/20 18:30 Pulse Ox 96 01/26/20 18:30 - Orders/Labs/Meds Orders: Active Orders 24 hr Category Date Time Status Slit Lamp to Bedside [RC] ASDIRECTED Care 01/26/20 18:30 Active Vaccines to be Administered [RC] PER UNIT ROUTINE Care 01/26/20 18:30 Active Visual Acuity [Vision Test] [RC] ASDIRECTED Care 01/26/20 18:16 Active Meds: Medications Discontinued Medications Generic Name Dose Route Start Last Admin Trade Name Freq PRN Reason Stop Dose Admin Diphtheria/Tetanus/Acell Pertussis 0.5 ml 01/26/20 18:30 01/26/20 18:49 Adacel IM 01/26/20 18:31 0.5 ml .ONCE ONE Administration Fluorescein Sodium 1 mg 01/26/20 18:28 01/26/20 18:54 Ful-Batsheva EYELF 01/26/20 18:29 1 mg ONETIME ONE Administration Proparacaine HCl 1 ml 01/26/20 18:42 01/26/20 18:54 Proparacaine 0.5% Ophth Soln EYEBOTH 01/26/20 18:43 Not Given ONETIME ONE Tetracaine HCl 1 ml 01/26/20 18:31 01/26/20 18:54 Tetracaine 0.5% Steri-Unit Gricelda EYEBOTH 01/26/20 18:32 Not Given ASDIRECTED ONE Tetracaine HCl 1 ml 01/26/20 18:53 01/26/20 18:53 Tetracaine 0.5% Steri-Unit Gricelda EYELF 01/26/20 18:54 1 ml ASDIRECTED ONE Administration Departure - Departure Time of Disposition: 19:15 Disposition: Home, Self-Care 01 Condition: Good Clinical Impression: Corneal abrasion, left Qualifiers: Encounter type: initial encounter Qualified Code(s): S05.02XA - Injury of conjunctiva and corneal abrasion without foreign body, left eye, initial encounter - Discharge Information *PRESCRIPTION DRUG MONITORING PROGRAM REVIEWED*: Not Applicable *COPY OF PRESCRIPTION DRUG MONITORING REPORT IN PATIENT NOEMI: Not Applicable Prescriptions: Acetaminophen [Acetaminophen Extra Strength] 500 - 1,000 mg PO Q6H PRN #30 tablet PRN Reason: Pain (Mild 1-3) Ketorolac [Acular 0.5% Ophth Soln] 1 drop OP TID PRN #1 bottle PRN Reason: Pain (Moderate 4-6) Sulfacetamide Sodium 5 ml OP TID 7 Days #1 bottle Instructions: Corneal Abrasion, [id number] Referrals: PCP,None [Primary Care Provider] - 1 Week (You should follow-up with an ophthalmology clinic in the next 1 week for reevaluation.) Forms: ED Department Discharge Additional Instructions: Thank you for choosing the [facility] emergency department in [place] for your medical needs today. It was a pleasure caring for you. You were seen in the emergency department for concern about a foreign body in your left eye. Your CT scan appears negative. There is no evidence of foreign body in your eye by examination. We are going to treat you for a corneal abrasion, or scrape on the surface of your left eye with topical antibiotics. You need to follow-up with an community placement worker (eye doctor) in the next week for evaluation. Return to the emergency department medially if you have vision changes or any worsening symptoms. Please return the emergency department immediately if your symptoms worsen or if you feel worse. The following information is given to patients seen in the emergency department who are being discharged. This information is to outline your options for follow -up care. We provide all patients seen in our emergency department with a follow -up referral. The need for follow-up, as well as the timing and circumstances, are variable depending upon the specifics of your emergency department visit. If you don't have a primary care physician on staff, we will provide you with a referral. We always advise you to contact your personal physician following an emergency department visit to inform them of the circumstance of the visit and for follow-up with them and/or the need for any referrals to a consulting specialist. The emergency department will also refer you to a specialist when appropriate. This referral assures that you have the opportunity for follow-up care with a specialist. All of these measure are taken in an effort to provide you with optimal care, which includes your follow-up. Under all circumstances we always encourage you to contact your private physician who remains a resource for coordinating your care. When calling for follow-up care, please make the office aware that this follow-up is from your recent emergency room visit. If for any reason you are refused follow-up, please contact the [facility] Emergency Department at and asked to speak to the emergency department charge nurse. If you do not have a primary care physician that is caring for you, you can contact these clinics below to set up an appointment to establish care: [facility] - Primary Care [address] [place] [address] [facility] [address] [place] [id number] Sepsis Event Note - Focused Exam Vital Signs: Vital Signs Temp Pulse Resp BP Pulse Ox 01/26/20 18:30 36.2 C 66 20 140/90 96 Date Exam was Performed: 01/26/20 Time Exam was Performed: 22:06 - My Orders Last 24 Hours: My Active Orders 01/26/20 18:16 Visual Acuity [Vision Test] [RC] ASDIRECTED 01/26/20 18:30 Slit Lamp to Bedside [RC] ASDIRECTED Vaccines to be Administered [RC] PER UNIT ROUTINE - Assessment/Plan Last 24 Hours: My Active Orders 01/26/20 18:16 Visual Acuity [Vision Test] [RC] ASDIRECTED 01/26/20 18:30 Slit Lamp to Bedside [RC] ASDIRECTED Vaccines to be Administered [RC] PER UNIT ROUTINE
[2020-01-26] MEDS ORDERED: Fluorescein 1 MG Ophth Strip EYELF ONE (18:28)
[2020-01-26] MEDS ORDERED: Diphtheria,Pertussis(Acell),Tetanus Vaccine 0.5 ML Syringe IM ONE (18:30)
[2020-01-26] MEDS ORDERED: Tetracaine HCl/PF 0.5% 4 ML Bottle EYEBOTH ONE (18:31)
[2020-01-26] MEDS ORDERED: Proparacaine 0.5% Ophth Soln 15 ML Bottle EYEBOTH ONE (18:42)
[2020-01-26] MEDS ORDERED: Tetracaine HCl/PF 0.5% 4 ML Bottle EYELF ONE (18:53)
--- NOTE | 2020-01-26 19:16 | CT ---
CT orbits Technique: Multiple axial sections through the orbits were obtained. Intravenous contrast was not utilized. Reconstructed coronal and sagittal images were obtained. Comparison: No prior orbital study. Findings: Right and left globes are symmetric in size. No radiopaque foreign object is seen. Extraocular muscles are symmetric. Optic nerves appear symmetric in size. No retrobulbar abnormality is seen. Lacrimal glands appear within normal limits. No surrounding soft tissue abnormality is appreciated. Visualized paranasal sinuses show nothing acute. No acute bony abnormality is identified. Impression: 1. No radiopaque foreign object is identified within or around the orbits. 2. Nothing acute is appreciated on noncontrast CT study centered to the orbits. Diagnostic code #1 This report was dictated in MDT
[2020-01-27 04:36] VITALS: BP 154/84; PULSE 87
== END 2020-01-26 20:00 | disposition home or self-care (01) ==
LOC: MW.ED 18:09
DX: S05.02XA Injury of conjunctiva and corneal abrasion without foreign body, left eye, initial encounter (principal); E11.9 Type 2 diabetes mellitus without complications; I10 Essential (primary) hypertension; K21.9 Gastro-esophageal reflux disease without esophagitis; E66.9 Obesity, unspecified; Z68.37 Body mass index [BMI] 37.0-37.9, adult; Z88.0 Allergy status to penicillin; Z91.018 Allergy to other foods; Z88.8 Allergy status to other drugs, medicaments and biological substances; Z79.84 Long term (current) use of oral hypoglycemic drugs; Z79.899 Other long term (current) drug therapy; Z23 Encounter for immunization; W22.8XXA Striking against or struck by other objects, initial encounter
CPT/HCPCS: 70480; 70480-26; 90471; 90715; 99283; 99283-25

== ENCOUNTER 2020-02-19 06:33 | Day surgery (SDC) | payer OTHER ==
[~2020-02-19 06:33] MED LIST: Lactated Ringers 1,000 ML IV SCH
[2020-02-19] MEDS ORDERED: fentaNYL 100 MCG/2 ML SDV ONE (07:07)
[2020-02-19] MEDS ORDERED: Lidocaine 2% 5 ML SDV ONE (07:07)
[2020-02-19] MEDS ORDERED: Propofol 200 MG/20 ML SDV ONE ×2 (07:07→08:27)
--- NOTE | 2020-02-19 07:46 | PCM.PREANE ---
Preanesthetic Assessment - Anesthesia/Transfusion/Family Hx Anesthesia History: Prior Anesthesia Reaction Other Type of Anesthesia Reaction Comment: "woke up during my last colonoscopy" Family History of Anesthesia Reaction: No Transfusion History: No Prior Transfusion(s) - Review of Systems General: No Symptoms Pulmonary: No Symptoms Cardiovascular: No Symptoms Gastrointestinal: No Symptoms Neurological: No Symptoms Other: Reports: None - Physical Assessment NPO Status Date: 02/18/20 Height: 5 ft 8.5 in Weight: 127.459 kg ASA Class: 3 Mental Status: Alert & Oriented x3 Airway Class: Mallampati = 2 Dentition: Reports: Normal Dentition ROM/Head Extension: Full Lungs: Clear to Auscultation, Normal Respiratory Effort Cardiovascular: Regular Rate, Regular Rhythm - Lab Values: Laboratory Last Values POC Glucose 147 mg/dL (60-110) H 02/19/20 07:28 - Allergies Allergies/Adverse Reactions: Allergies Allergy/AdvReac Type Severity Reaction Status Date / Time lisinopril Allergy Swollen Verified 02/19/20 07:36 Tongue Penicillins Allergy Swelling Verified 02/13/20 10:51 ragweed pollen Allergy Sneezing Verified 02/13/20 10:51 - Blood Blood Available: No - Anesthesia Plan Pre-Op Medication Ordered: None - Acknowledgements Anesthesia Type Planned: General Anesthesia (tiva) Pt an Appropriate Candidate for the Planned Anesthesia: Yes Alternatives and Risks of Anesthesia Discussed w Pt/Guardian: Yes Pt/Guardian Understands and Agrees with Anesthesia Plan: Yes Additional Comments: PMH: undiagnosed but clinical KISHORE, uses trazadone for sleep. DM -uses insulin , glucose 140s this am TIEN: tiva, watching for KISHORE based obstructions PreAnesthesia Questionnaire HEENT History: Reports: Other (See Below) Other HEENT History: wears glasses Cardiovascular History: Reports: High Cholesterol, Hypertension Respiratory History: Reports: Asthma Gastrointestinal History: Reports: Colon Polyp, GERD Genitourinary History: Reports: Renal Calculus Musculoskeletal History: Reports: Fracture, Osteoarthritis Other Musculoskeletal History: right tibia, no sx Neurological History: Reports: None Psychiatric History: Reports: Anxiety, PTSD Endocrine/Metabolic History: Reports: Diabetes, Type II, Obesity/BMI 30+ Hematologic History: Reports: None Immunologic History: Reports: None Oncologic (Cancer) History: Reports: None Dermatologic History: Reports: None - Past Surgical History Head Surgeries/Procedures: Reports: None HEENT Surgical History: Reports: None Cardiovascular Surgical History: Reports: None Respiratory Surgical History: Reports: None GI Surgical History: Reports: Colonoscopy, EGD Male Surgical History: Reports: Kidney Stone Extraction, Lithotripsy (ESWL) Endocrine Surgical History: Reports: None Neurological Surgical History: Reports: C-Spine, Lumbar Spine Other Neurological Surgeries/Procedures: hx back and neck surgery Musculoskeletal Surgical History: Reports: None Other Musculoskeletal Surgeries/Procedures:: 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, excision of left shoulder mass (lipoma) Oncologic Surgical History: Reports: None Dermatological Surgical History: Reports: None - SUBSTANCE USE Smoking Status *Q: Former Smoker Tobacco Use Within Last Twelve Months: No Recreational Drug Use History: No - HOME MEDS Home Medications: Home Meds Citalopram [Celexa] 40 mg PO DAILY 08/19/16 [History] Lisinopril 40 mg PO DAILY 08/19/16 [History] Omeprazole 40 mg PO DAILY 08/19/16 [History] glyBURIDE [Glyburide] 10 mg PO BID 08/19/16 [History] Albuterol [Ventolin HFA] 1 - 2 puff INH Q4H PRN 02/13/20 [History] Cetirizine HCl 10 mg PO DAILY PRN 02/13/20 [History] Diclofenac Sodium 75 mg PO BID PRN 02/13/20 [History] Insulin Detemir [Levemir Flextouch] 24 units SUBCUT BEDTIME 02/13/20 [History] Losartan/Hydrochlorothiazide [Losartan-HCTZ 50-12.5 MG] 1 tab PO DAILY 02/13/20 [History] NIFEdipine [Nifedipine ER] 30 mg PO DAILY 02/13/20 [History] atorvaSTATin Calcium [Atorvastatin Calcium] 80 mg PO DAILY 02/13/20 [History] traZODone HCl [Trazodone HCl] 2 tab PO BEDTIME 02/13/20 [History] - CURRENT (IN HOUSE) MEDS Current Meds: Current Medications Lactated Ringer's (Ringers, Lactated) 1,000 mls @ 125 mls/hr IV ASDIRECTED ALEKSANDER Last Admin: 02/19/20 07:33 Dose: 125 mls/hr Documented by: Discontinued Medications Fentanyl (Sublimaze) Confirm Administered Dose 100 mcg .ROUTE .STK-MED ONE Stop: 02/19/20 07:08 Lidocaine (Xylocaine-Mpf 2%) Confirm Administered Dose 5 ml .ROUTE .STK-MED ONE Stop: 02/19/20 07:08 Propofol (Diprivan 20 Ml) Confirm Administered Dose 400 mg .ROUTE .STK-MED ONE Stop: 02/19/20 07:08
--- NOTE | 2020-02-19 08:45 | PCM.OPNOTE ---
- General Post-Op/Procedure Note Date of Surgery/Procedure: 02/19/20 Operative Procedure(s): egd w bx. colonoscopy Findings: see [id number] Pre Op Diagnosis: gerd and colon polyp hx Post-Op Diagnosis: Same Anesthesia Technique: Moderate Sedation Primary Surgeon: Dionicio Palacios Pathology: egd bx Complications: None Condition: Good
[2020-02-19 11:34] VITALS: BP 158/93; PULSE 73
--- NOTE | 2020-02-19 13:05 | OR ---
SURGEON: Dionicio Palacios MD DATE OF PROCEDURE: 02/19/2020 PREOPERATIVE DIAGNOSES: Gastroesophageal reflux disease and history of colon polyp. POSTOPERATIVE DIAGNOSES: Gastroesophageal reflux disease and history of colon polyp. PROCEDURES PERFORMED: 1. Esophagogastroduodenoscopy with biopsy. 2. Colonoscopy. DESCRIPTION OF PROCEDURE: EGD: The patient was taken to the endoscopy room, and with the WATER QUALITY ASSISTANT, Diprivan was administered. A well-lubricated EGD scope was gently inserted through the oropharynx, down the esophagus, passing through the gastroesophageal junction, into the stomach. The mucosa was examined upon the passage. Any etiology will be noted. Once in the stomach, we continued to advance to the distal antrum, passed through the pylorus into the second portion of the duodenum. Again, the mucosa was examined for any abnormality and etiology. The scope was then retrieved back to the stomach and then retroflexed to look at the fundus of the stomach. If a biopsy was indicated, we will biopsy the antrum, body, and gastroesophageal junction. The air will be sucked out while the scope is retrieved to reduce the patient's discomfort. The patient tolerated the procedure well. There were no intraoperative complications. Dr. Palacios was present through the whole procedure. Prior to surgery, a time-out had been called, the patient identified, procedure identified and antibiotic administered. The patient was taken to the endoscopy room. A time out was called, patient identified, and procedure identified. Diprivan was then administrated. Patient went from awake to sleep, hearing doctor talking or door closing is normal. Perineum inspection and digital examination were then performed. A well- lubricated colonoscope was gently inserted through the rectum, advanced past the rectosigmoid junction, the descending colon, splenic flexure, transverse colon, hepatic flexure, ascending colon, arrived to the cecum. Cecum was identified as dictated in the finding. Then the scope was carefully withdrawn while attention was paid to the mucosal surface for any abnormality. Air will be sucked out during the scope withdrawal. At the rectum, retroflexed to examine any rectal diseases, fistula or hemorrhoids. Patient tolerated procedure well. There were no intraoperative complications, and Dr. Palacios was present throughout the whole procedure. FINDINGS: EGD findings: 1. The patient is easily sedated with WATER QUALITY ASSISTANT and Diprivan, the patient is soundly snoring. 2. The patient's oropharynx and proximal esophagus are grossly normal in appearance and distal esophagus at GE junction at 40 shows minimal salmon- colored change, suggests mild acid reflux. Stomach rugae are normal in appearance. No bile, blood, or food particle in the stomach. In one area, the body was a little bit like inflamed, but again has no ulcer, no blood. Antrum was a little bit inflamed, mild. Duodenum was grossly normal. Scope retrieved back to the stomach. Retroflexed look at the fundus of stomach, there is no hiatal hernia. Biopsy done at antrum; body, especially the area that was inflamed; and GE junction at 40 and sucked out the air while scope pulling out. Colonoscopy findings: 1. The patient was easily sedated with WATER QUALITY ASSISTANT and Diprivan. 2. Bowel prep was average to above average, very little liquid stool, and the patient did a good job. There is some liquid stool, but it is very small. Colon was rather straightforward. Cecum indicated by ileocecal fold, one- to-one indentation, appendiceal orifice. ScopeGuide pointing south. Light emittance was not observed. Mucosa examined upon scope pulling out with irrigation. The patient does not have diverticulosis, polyp, growth, mass, inflammation, stricture, ulceration, AV malformation. The place where the previous polyp was does not seem to have any polyp in place and a spot that has been tattooed was noted to be normal. The patient has mild internal hemorrhoids, no external hemorrhoids. The patient would benefit from repeat colonoscopy probably 10 years from today or if clinically indicated otherwise. BIANCA / SHILPI /[id number]
--- NOTE | 2020-02-19 13:42 | PCM.POSTAN ---
POST ANESTHESIA ASSESSMENT - MENTAL STATUS Mental Status: Alert, Oriented - VITAL SIGNS Vital Signs: Last Vital Signs Temp 97.0 F 02/19/20 09:05 Pulse 73 02/19/20 09:05 Resp 16 02/19/20 09:05 BP 158/93 H 02/19/20 09:05 Pulse Ox 93 L 02/19/20 09:05 - RESPIRATORY Respiratory Status: Respiratory Rate WNL, Airway Patent, O2 Saturation Stable - CARDIOVASCULAR CV Status: Pulse Rate WNL, Blood Pressure Stable - GASTROINTESTINAL GI Status: No Symptoms - POST OP HYDRATION Hydration Status: Adequate & Stable
--- NOTE | 2020-02-19 13:42 | PCM48HPAN ---
Post Anesthesia Note - EVALUATION WITHIN 48HRS OF ANESTHETIC Vital Signs in Normal Range: Yes Patient Participated in Evaluation: Yes Respiratory Function Stable: Yes Airway Patent: Yes Cardiovascular Function Stable: Yes Hydration Status Stable: Yes Pain Control Satisfactory: Yes Nausea and Vomiting Control Satisfactory: Yes Mental Status Recovered: Yes Vital Signs: Last Vital Signs Temp 97.0 F 02/19/20 09:05 Pulse 73 02/19/20 09:05 Resp 16 02/19/20 09:05 BP 158/93 H 02/19/20 09:05 Pulse Ox 93 L 02/19/20 09:05
== END 2020-02-19 10:35 | disposition home or self-care (01) ==
LOC: MW.SDS 06:33
PROVIDERS: ATTEND Surgery
DX: Z12.11 Encounter for screening for malignant neoplasm of colon (principal); K64.8 Other hemorrhoids; K29.50 Unspecified chronic gastritis without bleeding; K21.9 Gastro-esophageal reflux disease without esophagitis; I10 Essential (primary) hypertension; E11.9 Type 2 diabetes mellitus without complications; E66.9 Obesity, unspecified; F41.9 Anxiety disorder, unspecified; J45.909 Unspecified asthma, uncomplicated; Z11.59 Encounter for screening for other viral diseases; Z86.010 Personal history of colon polyps; Z98.890 Other specified postprocedural states; Z88.0 Allergy status to penicillin; Z88.8 Allergy status to other drugs, medicaments and biological substances; Z79.899 Other long term (current) drug therapy; Z79.84 Long term (current) use of oral hypoglycemic drugs; E78.00 Pure hypercholesterolemia, unspecified; Z87.891 Personal history of nicotine dependence; Z68.41 Body mass index [BMI] 40.0-44.9, adult
CPT/HCPCS: 43239; 45378; 82962; 87635; J2001; J2704; J3010; J7120; U0002

== ENCOUNTER 2022-06-03 10:45 | Emergency (ER) | payer OTHER ==
[2022-06-03] MEDS: Lidocaine 1% 5 ML VIAL INJECT ONE (15:22)
[2022-06-03] MEDS: Octyl 2-Cyanoacrylate 1 g/1 mL 1 APPLIC PEN TOP ONE (16:00)
[2022-06-03 16:03] VITALS: BP 163/92; PULSE 84
== END 2022-06-03 16:02 | disposition home or self-care (01) ==
LOC: MW.ED 10:45
DX: S61.412A Laceration without foreign body of left hand, initial encounter (principal); I10 Essential (primary) hypertension; E11.9 Type 2 diabetes mellitus without complications; E66.9 Obesity, unspecified; Z68.41 Body mass index [BMI] 40.0-44.9, adult; Z88.8 Allergy status to other drugs, medicaments and biological substances; Z88.0 Allergy status to penicillin; Z91.048 Other nonmedicinal substance allergy status; Z79.899 Other long term (current) drug therapy; X50.0XXA Overexertion from strenuous movement or load, initial encounter
CPT/HCPCS: 12004; 73130-26-LT; 73130-LT; 99282; 99283

== ENCOUNTER 2022-06-13 16:32 | Emergency (ER) | payer OTHER ==
[2022-06-13 18:11] VITALS: BP 168/94; PULSE 100
== END 2022-06-13 18:12 | disposition home or self-care (01) ==
LOC: MW.ED 16:32
DX: S61.412D Laceration without foreign body of left hand, subsequent encounter (principal)
CPT/HCPCS: 99281